=== PATIENT | female | born 1990 | race American Indian/Alaskan Native ===

== ENCOUNTER 2017-03-13 09:40 | Emergency (ER) | payer SELFPAY ==
[2017-03-13 10:25] LABS: Basophils % (Auto) 1.1 % (0.0-1.8); Eosinophils % (Auto) 1.8 % (0.0-4.3); Hematocrit 34.3 % (30.3-42.9); Hemoglobin 11.2 gm/dl (10.1-14.3); Mean Corpuscular HGB Conc 33 % (30-34); Mean Corpuscular Hemoglobin 27 pg (28-32); Mean Corpuscular Volume 82 fl (79-97); Platelet Count 214 K/mm3 (140-440); Red Blood Count 4.16 M/mm3 (3.65-5.03); White Blood Count 4.4 K/mm3 (4.5-11.0)
[2017-03-13 10:32] LABS: Anion Gap 16 mmol/L; BUN/Creatinine Ratio 7.14; Blood Urea Nitrogen 5 mg/dL (7-17); Calcium 8.5 mg/dL (8.4-10.2); Carbon Dioxide 25 mmol/L (22-30); Chloride 103.9 mmol/L (98-107); Glucose 85 mg/dL (65-100); Potassium 3.5 mmol/L (3.6-5.0); Sodium 141 mmol/L (137-145)
--- NOTE | 2017-03-13 10:48 | Emergency Department Report ---
Entered by JOSIE PARHAM, acting as scribe for ROSE VENTURA NP. Chief Complaint: Vaginal Bleeding Stated Complaint: 8WKS /VAG BLEEDING Time Seen by Provider: 03/13/17 10:30 - HPI History of Present Illness: 26 y/o female is 8 weeks c/o vaginal bleeding Visited clinic and diagnosed with UTI Notes recently receiving an ultrasound and speculum exam with normal results LMP 01/16/2017 seen at [facility] on 5-10 told bv,uti, and preg pat work presented but not enough detail. need records vag bleed. nad no abd pain - ROS Review of Systems: see above - Exam Vital Signs: Vital Signs 03/13/17 09:53 Temperature 97.9 F Pulse Rate 81 Respiratory 17 Rate Blood Pressure 126/83 O2 Sat by Pulse 100 Oximetry Physical Exam: see above MSE screening note: Focused history and physical exam performed. Due to findings the following was ordered: ED Medical Decision Making - Lab Data Result diagrams: 03/13/17 10:05 03/13/17 10:05 ED Disposition for MSE Condition: Stable This documentation as recorded by the scribe,JOSIE PARHAM,accurately reflects the service I personally performed and the decisions made by ,ROSE NOVAK NP.
[2017-03-13 11:28] LABS: Bilirubin,Urine NEG (Negative); Blood,Urine LG (Negative); Ketones,Urine NEG (Negative); Leukocyte Esterase,Urine TR (Negative); Mucus,Urine 3+ /HPF; Nitrite,Urine NEG (Negative)
[2017-03-13 11:30] LABS: RBC,Urine > 182.0 /HPF (0.0-6.0)
--- NOTE | 2017-03-13 14:46 | Ultrasound Report ---
ULTRASOUND OB LESS THAN 14 WEEKS - TRANSABDOMINAL AND TRANSVAGINAL INDICATION: , vaginal bleeding. Serum beta-hCG of 2,407 units. COMPARISON: 07/19/2013 FINDINGS: Transabdominal and transvaginal pelvic sonography performed in this patient with estimated menstrual age of 8 weeks and 0 days and EDC of 12/24/2016 per outside ultrasound. An anteverted uterus measuring approximately 9.8 x 6.2 x 6.7 cm demonstrates endometrial thickness of approximately 2.2 cm as on endovaginal image 10. Approximately 1 x 0.6 cm endometrial heterogeneity superiorly, endovaginal image 3 seemed mobile on real-time imaging, appearing mid to lower uterine and somewhat elongated hypoechoic focus along the endometrium as on endovaginal images 4-6 that may represent a gestational sac with mean diameter of 1.37 cm, corresponding to 6 weeks and 2 days. A pole with mean crown-rump length of 0.93 cm corresponds to 7 weeks and zero days. No heart tones though obtained. A small subchorionic hemorrhage may be present. Minimal pelvic free fluid. Right ovary is 4.1 x 1.8 x 3.5 cm, only seen transabdominally with an approximately 2.4 cm possible cyst/corpus luteum. Left ovary measures 2.9 x 2.5 x 3.2 cm endovaginally with approximately 1.9 cm follicular cyst. CONCLUSION: 1. Sonographic appearance most in keeping with an intrauterine first trimester demise, as described. Note though made of similar findings in June 2015 as well. 2. Other findings, including both ovaries visualized, as above. Please also correlate clinically, with serial serum beta-hCG values and/or followup sonogram, as warranted. Thank you for the opportunity to participate in this patient's care.
--- NOTE | 2017-03-13 18:08 | Emergency Department Report ---
HPI - General Chief Complaint: Vaginal Bleeding Time Seen by Provider: 03/13/17 17:56 - HPI HPI: This is a 26-year-old Afro-[place] female who presents to the emergency department from home with complaint of a few days of some mild vaginal bleeding and some abdominal cramping while . The patient believes herself to be about 8 weeks secondary to a last menstrual cycle of January 16 and positive home test. Her [employer] is Dr. Sylvie Stuart but she has not seen Dr. Stuart yet regarding this . With this she is . She denies any fever, nausea, vomiting, dysuria, vaginal discharge, back pain. No recent travel or sick contacts at home. She is not currently on vitamins. She is not taken anything for symptoms prior to presentation. ED Past Medical Hx - Past Medical History Hx Hypertension: No Hx Congestive Heart Failure: No Hx Diabetes: No Hx Deep Vein Thrombosis: No Hx Renal Disease: No Hx Sickle Cell Disease: No Hx Seizures: No Hx Asthma: Yes (last attack 1999) Hx COPD: No Hx HIV: No - Surgical History Past Surgical History?: No - Social History Smoking Status: Never Smoker Substance Use Type: None - Medications Home Medications: Home Medications Medication Instructions Recorded Confirmed Last Taken Type Ferrous Sulfate [Feosol] 325 mg PO BID 11/26/15 11/26/15 Unknown History Vit-Fe Fumar-FA [ 1 tab PO QDAY 11/26/15 11/26/15 Unknown History Vitamin] Vit No.130/Iron/FA 1 each PO QDAY #30 tablet 03/13/17 Unknown Rx [ Tablet] ED Review of Systems ROS: Stated complaint: 8WKS /VAG BLEEDING Other details as noted in HPI Comment: All other systems reviewed and negative Constitutional: denies: chills, fever Eyes: denies: eye pain, eye discharge, vision change ENT: denies: ear pain, throat pain Respiratory: denies: cough, shortness of breath, wheezing Cardiovascular: denies: chest pain, palpitations Gastrointestinal: abdominal pain. denies: nausea, vomiting Genitourinary: other (vaginal bleeding). denies: urgency, dysuria, discharge Musculoskeletal: denies: back pain, joint swelling, arthralgia Skin: denies: rash, lesions Neurological: denies: headache, weakness, paresthesias Physical Exam - Physical Exam Vital Signs: Vital Signs 03/13/17 09:53 Temperature 97.9 F Pulse Rate 81 Respiratory 17 Rate Blood Pressure 126/83 O2 Sat by Pulse 100 Oximetry Physical Exam: GENERAL: The patient is well-developed well-nourished. HEENT: Normocephalic. Atraumatic. Extraocular motions are intact. Patient has moist mucous membranes. Pupils equal reactive to light bilaterally. NECK: Supple. Trachea is midline. CHEST/LUNGS: Clear to auscultation. There is no respiratory distress noted. HEART/CARDIOVASCULAR: Regular. There is no tachycardia. There is no gallop rub or murmur. ABDOMEN: Abdomen is soft, nontender. Patient has normal bowel sounds. There is no abdominal distention. SKIN: Skin is warm and dry. NEURO: The patient is awake, alert, and oriented. The patient is cooperative. The patient has no focal neurologic deficits. The patient has normal speech and gait. MUSCULOSKELETAL: There is no tenderness or deformity. There is no limitation range of motion. There is no evidence of acute injury. ED Course Vital Signs 03/13/17 09:53 Temperature 97.9 F Pulse Rate 81 Respiratory 17 Rate Blood Pressure 126/83 O2 Sat by Pulse 100 Oximetry ED Medical Decision Making - Lab Data Result diagrams: 03/13/17 10:05 03/13/17 10:05 - Radiology Data Radiology results: report reviewed ultrasound shows sonographic appearance most in keeping with an intrauterine first trimester demise. There is a gestational sac corresponding to about 6 weeks and 2 days. There is a pole corresponding to about 7 weeks. No heart tones obtained. - Medical Decision Making 26-year-old female presents with some vaginal bleeding and abdominal cramping while about 8 weeks . Hormone levels about 2500. There is no previous data to compare during this . An ultrasound was done that shows concern for intrauterine demise as there is a yolk sac, gestational sac, pole but no heart tones. Patient will be started on vitamins just in case this is still an early viable and has been encouraged to follow-up with her [employer]. If she is unable to do so in the next few days, she will return to the ER for a repeat hormone level and possibly repeat ultrasound. If the hormone level is rising and a repeat ultrasound shows heart tones then this was an early viable . If the hormone level is decreasing, staying the same or if the ultrasound shows regression of the , then this is most likely demise and impending miscarriage. - Differential Diagnosis , threatened miscarriage, spontaneous miscarriage, fibroids Critical Care Time: No Critical care attestation.: If time is entered above; I have spent that time in minutes in the direct care of this critically ill patient, excluding procedure time. ED Disposition Clinical Impression: Threatened miscarriage, demise Disposition: DISCHARGED TO HOME OR SELFCARE Is pt being admited?: No Condition: Stable Instructions: Intrauterine Demise (ED), Threatened Miscarriage (ED) Additional Instructions: Please follow-up with your [employer], Dr. Stuart, in the next few days without fail. While the ultrasound appears consistent with demise, there is still a very small chance that this could be a viable intrauterine early . He will need a repeat hormone level and possibly a repeat ultrasound. If the hormone level is increasing and there is some development on the ultrasound, then this may be early . If the hormone level is decreasing or the ultrasound appears to be regressing, then this was a demise and you may need further intervention by her [employer]. Return to the emergency department sooner with any worsening of your symptoms, intractable fever, intractable abdominal discomfort, or any acute distress. Prescriptions: Vit No.130/Iron/FA [ Tablet] 1 each PO QDAY #30 tablet Referrals: RAF STUART MD [Primary Care Provider] - [facility] Time of Disposition: 18:10
[2017-03-13 18:39] VITALS: BP 129/74
== END 2017-03-13 18:38 | disposition home or self-care (01) ==
LOC: ED 09:40
DX: O20.0 Threatened abortion (principal); O36.4XX0 Maternal care for intrauterine death, not applicable or unspecified; J45.909 Unspecified asthma, uncomplicated
CPT/HCPCS: 36415; 76801; 76817; 80048; 81001; 84702; 85025; 86900; 86901

== ENCOUNTER 2017-06-23 12:54 | Emergency (ER) | payer SELFPAY ==
[2017-06-23 13:51] VITALS: BP 142/89
[2017-06-23 14:40] LABS: Basophils % (Auto) 0.5 % (0.0-1.8); Eosinophils % (Auto) 1.1 % (0.0-4.3); Hematocrit 31.4 % (30.3-42.9); Mean Corpuscular HGB Conc 32 % (30-34); Mean Corpuscular Hemoglobin 26 pg (28-32); Mean Corpuscular Volume 83 fl (79-97); Platelet Count 246 K/mm3 (140-440); Red Blood Count 3.79 M/mm3 (3.65-5.03); Red Cell Distribution Width 15.3 % (13.2-15.2); White Blood Count 6.2 K/mm3 (4.5-11.0)
[2017-06-23 15:28] LABS: Bacteria,Urine 4+ /HPF (Negative); Bilirubin,Urine NEG (Negative); Blood,Urine LG (Negative); Ketones,Urine NEG (Negative); Leukocyte Esterase,Urine SM (Negative); Mucus,Urine 2+ /HPF; Nitrite,Urine NEG (Negative)
[2017-06-23 15:31] LABS: RBC,Urine > 182.0 /HPF (0.0-6.0)
--- NOTE | 2017-06-23 15:59 | Ultrasound Report ---
Pelvic and transvaginal sonography: History: Bleeding/. Findings: Uterus measures 11 x 5 x 6.6 cm. Endometrial thickness 19 mm. Echogenic area is noted within the endometrium suggestive of retained blood clots. No intrauterine gestation is noted. Open cervix 1.2 cm in AP diameter. Right ovary 4 x 2.5 x 4 cm. No mass. Left ovary 4.9 x 3.4 x 5 cm. Cyst in the left ovary measures 2.2 cm. Impression: No intrauterine gestation. Findings as detailed above.
== END 2017-06-23 15:25 | disposition left against medical advice (07) ==
LOC: ED 12:54
DX: Z53.21 Procedure and treatment not carried out due to patient leaving prior to being seen by health care provider (principal)
CPT/HCPCS: 36415; 76801; 76817; 81001; 84702; 84703; 85025; 86850; 86900; 86901

== ENCOUNTER 2017-12-14 16:03 | Emergency (ER) | payer MEDICAID ==
[2017-12-14 16:36] VITALS: BP 122/81
[2017-12-14 17:05] LABS: Basophils % (Auto) 0.6 % (0.0-1.8); Eosinophils % (Auto) 0.8 % (0.0-4.3); Hematocrit 31.6 % (30.3-42.9); Hemoglobin 10.5 gm/dl (10.1-14.3); Lymphocytes # (Auto) 1.5 K/mm3 (1.2-5.4); Lymphocytes % (Auto) 31.1 % (13.4-35.0); Mean Corpuscular HGB Conc 33 % (30-34); Mean Corpuscular Hemoglobin 26 pg (28-32); Mean Corpuscular Volume 79 fl (79-97); Monocytes # (Auto) 0.3 K/mm3 (0.0-0.8); Monocytes % (Auto) 6.2 % (0.0-7.3); Platelet Count 241 K/mm3 (140-440); Red Cell Distribution Width 19.5 % (13.2-15.2)
[2017-12-14 17:22] LABS: Alanine Aminotransferase 6 units/L (7-56); Albumin 3.6 g/dL (3.9-5); BUN/Creatinine Ratio 14; Blood Urea Nitrogen 7 mg/dL (7-17); Calcium 8.7 mg/dL (8.4-10.2); Hemolysis Index 3
--- NOTE | 2017-12-14 18:44 | Emergency Department Report ---
ED Female HPI - General Chief complaint: Abdominal Pain Stated complaint: ABDOMINAL CRAMPING Time Seen by Provider: 12/14/17 18:39 Source: patient Mode of arrival: Ambulatory Limitations: No Limitations - History of Present Illness Initial comments: Patient is a 27-year-old female who is less than 12 weeks presumably who is coming with lower abdominal cramping. Patient states this started earlier today however before her exam she says she drank a Coca[employer] and she has belched several times and passed flatus and now her pain has gone away. Patient denies any vaginal bleeding discharge dysuria hematuria or continued pain MD Complaint: pelvic pain Radiation: suprapubic Quality: cramping Consistency: now resolved - Related Data Home Medications Medication Instructions Recorded Confirmed Last Taken Ferrous Sulfate [Feosol] 325 mg PO BID 11/26/15 11/26/15 Unknown Vit-Fe Fumar-FA [ 1 tab PO QDAY 11/26/15 11/26/15 Unknown Vitamin] Previous Rx's Medication Instructions Recorded Last Taken Type Vit No.130/Iron/Folic 1 each PO QDAY #30 tablet 03/13/17 Unknown Rx [ Tablet] Allergies Allergy/AdvReac Type Severity Reaction Status Date / Time Penicillins Allergy Unknown Verified 07/19/13 18:18 ED Review of Systems ROS: Stated complaint: ABDOMINAL CRAMPING Other details as noted in HPI Comment: All other systems reviewed and negative ED Past Medical Hx - Past Medical History Hx Hypertension: No Hx Congestive Heart Failure: No Hx Diabetes: No Hx Deep Vein Thrombosis: No Hx Renal Disease: No Hx Sickle Cell Disease: No Hx Seizures: No Hx Asthma: No (last attack 1999) Hx COPD: No Hx HIV: No - Surgical History Past Surgical History?: No - Social History Smoking Status: Never Smoker Substance Use Type: None - Medications Home Medications: Home Medications Medication Instructions Recorded Confirmed Last Taken Type Ferrous Sulfate [Feosol] 325 mg PO BID 11/26/15 11/26/15 Unknown History Vit-Fe Fumar-FA [ 1 tab PO QDAY 11/26/15 11/26/15 Unknown History Vitamin] Vit No.130/Iron/Folic 1 each PO QDAY #30 tablet 03/13/17 Unknown Rx [ Tablet] ED Physical Exam - General Limitations: No Limitations General appearance: alert, in no apparent distress - Head Head exam: Present: atraumatic, normocephalic - Eye Eye exam: Present: normal appearance - ENT ENT exam: Present: mucous membranes moist - Neck Neck exam: Present: normal inspection - Respiratory Respiratory exam: Present: normal lung sounds bilaterally. Absent: respiratory distress - Cardiovascular Cardiovascular Exam: Present: regular rate, normal rhythm. Absent: systolic murmur, diastolic murmur, rubs, gallop - GI/Abdominal GI/Abdominal exam: Present: soft, normal bowel sounds - Extremities Exam Extremities exam: Present: normal inspection - Back Exam Back exam: Present: normal inspection - Neurological Exam Neurological exam: Present: alert, oriented X3 - Psychiatric Psychiatric exam: Present: normal affect, normal mood - Skin Skin exam: Present: warm, dry, intact, normal color. Absent: rash ED Course Vital Signs 12/14/17 16:32 Temperature 97.8 F Pulse Rate 97 H Respiratory 16 Rate Blood Pressure 122/81 O2 Sat by Pulse 100 Oximetry ED Medical Decision Making - Lab Data Result diagrams: 12/14/17 16:49 12/14/17 16:49 - Medical Decision Making Patient has an appointment to see her [employer] next week patient has no abdominal pain and do not believe she needs an emergent ultrasound this time patient will be discharged home Critical care attestation.: If time is entered above; I have spent that time in minutes in the direct care of this critically ill patient, excluding procedure time. ED Disposition Clinical Impression: Gas pain Disposition: DC-01 TO HOME OR SELFCARE Is pt being admited?: No Does the pt Need Aspirin: No Condition: Stable Instructions: Abdominal Pain (ED) Referrals: PRIMARY CARE, [Primary Care Provider] - 3-5 Days
[2017-12-14 21:50] LABS: HCG Qualitative,Urine Positive (Negative)
== END 2017-12-14 18:57 | disposition home or self-care (01) ==
LOC: ED 16:03
DX: O26.891 Other specified pregnancy related conditions, first trimester (principal); R14.1 Gas pain; Z3A.12 12 weeks gestation of pregnancy
CPT/HCPCS: 36415; 80053; 81025; 84702; 84703; 85025

== ENCOUNTER 2018-02-19 10:11 | Emergency (ER) | payer MEDICAID ==
[2018-02-19 11:36] LABS: Basophils % (Auto) 0.3 % (0.0-1.8); Eosinophils # (Auto) 0.1 K/mm3 (0.0-0.4); Eosinophils % (Auto) 1.3 % (0.0-4.3); Hematocrit 29.3 % (30.3-42.9); Hemoglobin 9.5 gm/dl (10.1-14.3); Lymphocytes # (Auto) 1.4 K/mm3 (1.2-5.4); Mean Corpuscular HGB Conc 32 % (30-34); Mean Corpuscular Hemoglobin 27 pg (28-32); Mean Corpuscular Volume 83 fl (79-97); Monocytes # (Auto) 0.3 K/mm3 (0.0-0.8); Monocytes % (Auto) 5.7 % (0.0-7.3); Platelet Count 201 K/mm3 (140-440); Red Blood Count 3.55 M/mm3 (3.65-5.03); Red Cell Distribution Width 16.4 % (13.2-15.2)
[2018-02-19 11:50] LABS: Alanine Aminotransferase 7 units/L (7-56); Albumin 3.6 g/dL (3.9-5); BUN/Creatinine Ratio 10; Blood Urea Nitrogen 5 mg/dL (7-17); Calcium 8.9 mg/dL (8.4-10.2); Hemolysis Index 4; Lipase 9 units/L (13-60)
[2018-02-19 12:23] LABS: Bacteria,Urine 2+ /HPF (Negative); Bilirubin,Urine NEG (Negative); Blood,Urine NEG (Negative); Color,Urine Yellow (Yellow); Mucus,Urine 3+ /HPF; Urobilinogen,Urine < 2.0 mg/dL (<2.0)
[2018-02-19] MEDS ORDERED: NACL 0.9% 1000 ML 1,000 ML IV ONE (14:06)
[2018-02-19] MEDS ORDERED: ZOFRAN IV ONE (14:06)
--- NOTE | 2018-02-19 14:06 | Emergency Department Report ---
Blank Doc - Documentation Documentation: Patient is 27 years old female, 19 weeks , presents complaining of right upper quadrants pain for the last 2-3 days associated with nausea but no vomiting. Patient denied any vaginal bleeding or vaginal discharge. She denied any lower abdominal pain. No fever.
--- NOTE | 2018-02-19 14:33 | Emergency Department Report ---
HPI - General Chief Complaint: Abdominal Pain Time Seen by Provider: 02/19/18 13:58 - HPI HPI: She is a 27 year-old 004 who presents to ED at 19 weeks gestation complaining of right flank pain 3 days. She states pain does not radiate anywhere else. She had migraines, nausea the pain. She describes it as sharp in nature. Patient denies feeling this is chills/vomiting/vaginal discharge/ Vaginal Bleeding. She States it receives care and has an appointment on March 07. She ED Past Medical Hx - Past Medical History Hx Hypertension: No Hx Congestive Heart Failure: No Hx Diabetes: No Hx Deep Vein Thrombosis: No Hx Renal Disease: No Hx Sickle Cell Disease: No Hx Seizures: No Hx Asthma: No (last attack 1999) Hx COPD: No Hx HIV: No - Social History Smoking Status: Never Smoker Substance Use Type: None - Medications Home Medications: Home Medications Medication Instructions Recorded Confirmed Last Taken Type Vit-Fe Fumar-FA [ 1 tab PO QDAY 11/26/15 11/26/15 Unknown History Vitamin] Vit No.130/Iron/Folic 1 each PO QDAY #30 tablet 03/13/17 Unknown Rx [ Tablet] Acetaminophen [Tylenol Extra 500 mg PO TID #30 tablet 02/19/18 Unknown Rx Strength] Ferrous Sulfate [Feosol 325 MG tab] 325 mg PO BID #40 tablet 02/19/18 Unknown Rx Nitrofurantoin Monohyd/M-Cryst 100 mg PO BID #14 capsule 02/19/18 Unknown Rx [Macrobid 100 mg Capsule] Ondansetron [Zofran Odt] 4 mg PO Q8H #30 tab.rapdis 02/19/18 Unknown Rx ED Review of Systems ROS: Stated complaint: RIGHT FLANK PAIN Other details as noted in HPI Constitutional: denies: chills, fever Eyes: denies: eye pain, eye discharge, vision change ENT: denies: ear pain, throat pain Respiratory: denies: cough, shortness of breath, wheezing Cardiovascular: denies: chest pain, palpitations Endocrine: no symptoms reported Gastrointestinal: denies: abdominal pain, nausea, diarrhea Genitourinary: denies: urgency, dysuria, discharge Musculoskeletal: denies: back pain, joint swelling, arthralgia Skin: denies: rash, lesions Neurological: denies: headache, weakness, paresthesias Psychiatric: denies: anxiety, depression Hematological/Lymphatic: denies: easy bleeding, easy bruising Physical Exam - Physical Exam Vital Signs: Vital Signs 02/19/18 11:20 Temperature 98.4 F Pulse Rate 82 Respiratory 18 Rate Blood Pressure 113/69 O2 Sat by Pulse 100 Oximetry Physical Exam: GENERAL: Alert and oriented x3, no apparent distress, Normal Gait, atraumatic. HEAD: Head is normocephalic and a-traumatic. EYES: Extra ocular muscles are intact. Pupils are equal, round, and reactive to light and accommodation. LUNGS: Symetrical with respiration, No wheezing, no rales or crackles, CTAB. HEART: S1, S2 present, regular rate and rhythm without murmur, no rubs, no gallops. Non tender to palpation ABDOMEN: No organomegaly was noted,Positive bowel sounds, soft, and non- distended. . Nontender to palpation on all Quadrants, NO CVA tenderness. NEUROLOGIC: The patient is cooperative with no focal neurologic deficits. SKIN: Warm and dry, No lesions, No ulceration or induration present. ED Course Vital Signs 02/19/18 11:20 Temperature 98.4 F Pulse Rate 82 Respiratory 18 Rate Blood Pressure 113/69 O2 Sat by Pulse 100 Oximetry ED Medical Decision Making - Lab Data Result diagrams: 02/19/18 11:25 02/19/18 11:25 - Radiology Data Radiology results: report reviewed, image reviewed FINAL REPORT EXAM: US ABDOMEN LIMITED HISTORY: right upper quadrant pain, TECHNIQUE: Directed sonography of the right upper quadrant. PRIORS: None. FINDINGS: Gallbladder contains multiple, echogenic and shadowing calculi. Wall thickness within normal limits. Intra-and extrahepatic bile ducts are of normal caliber. Liver has normal homogeneous echogenicity without focal abnormalities. Right kidney measures 9.7 cm in longest dimension and is grossly unremarkable. Visualized pancreatic parenchyma grossly unremarkable. IMPRESSION: 1. Cholelithiasis. Transcribed By: [facility] Dictated By: JANINA MCCOLLUM MD Electronically Authenticated By: JANINA MCCOLLUM MD Signed Date/Time: 02/19/18 5085 - Medical Decision Making This is a 27-year-old female who presents with gall bladder stones in ED course: CBC, BMP, urinalysis, test, ultrasound of the abdomen Patient received 1 L of normal saline, Zofran for nausea. Urinalysis positive for bacteria, CBC shows anemia. CMP shows mildly dehydrated. I discussed findings with patient and discussed with her she would need to increase her water intake. Also discussed the patient before antibiotics for UTI treatment. Discussed iron tablets twice a day. I discussed with patient to follow-up with her private [employer]ER. Discussed f./u with GI for management gall bladder stone I discussed the patient have any worsening symptoms to Return to ED. Patient had no vomiting episodes in ed stay Vital signs are normal she is in no acute distress. Critical care attestation.: If time is entered above; I have spent that time in minutes in the direct care of this critically ill patient, excluding procedure time. ED Disposition Clinical Impression: Cholelithiasis UTI (urinary tract infection) Qualifiers: Urinary tract infection type: acute cystitis Hematuria presence: without hematuria Qualified Code(s): N30.00 - Acute cystitis without hematuria Anemia in Qualifiers: Trimester: second trimester Qualified Code(s): O99.012 - Anemia complicating , second trimester Disposition: TO HOME OR SELFCARE Is pt being admited?: No Does the pt Need Aspirin: No Condition: Stable Instructions: Biliary Colic (ED), Urinary Tract Infection in Women (ED), Abdominal Pain (ED), Flank Pain (ED) Additional Instructions: Make sure to follow up with the primary care physician as discussed. Take all your medications as you've been prescribed. If you have any worsening symptoms or develop new symptoms please return to ED immediately. Prescriptions: Acetaminophen [Tylenol Extra Strength] 500 mg PO TID #30 tablet Ferrous Sulfate [Feosol 325 MG tab] 325 mg PO BID #40 tablet Nitrofurantoin Monohyd/M-Cryst [Macrobid 100 mg Capsule] 100 mg PO BID #14 capsule Ondansetron [Zofran Odt] 4 mg PO Q8H #30 tab.rapdis Referrals: RAF MCKAY MD [Primary Care Provider] - 3-5 Days [facility] [Provider Group] - 3-5 Days Forms: Work/School Release Form(ED) Time of Disposition: 17:19
--- NOTE | 2018-02-19 16:59 | Ultrasound Report ---
FINAL REPORT EXAM: US ABDOMEN LIMITED HISTORY: right upper quadrant pain, TECHNIQUE: Directed sonography of the right upper quadrant. PRIORS: None. FINDINGS: Gallbladder contains multiple, echogenic and shadowing calculi. Wall thickness within normal limits. Intra-and extrahepatic bile ducts are of normal caliber. Liver has normal homogeneous echogenicity without focal abnormalities. Right kidney measures 9.7 cm in longest dimension and is grossly unremarkable. Visualized pancreatic parenchyma grossly unremarkable. IMPRESSION: 1. Cholelithiasis.
[2018-02-19 17:39] VITALS: BP 110/64
== END 2018-02-19 17:38 | disposition home or self-care (01) ==
LOC: ED 10:11
DX: O99.012 Anemia complicating pregnancy, second trimester (principal); O23.42 Unspecified infection of urinary tract in pregnancy, second trimester; O26.892 Other specified pregnancy related conditions, second trimester; K80.20 Calculus of gallbladder without cholecystitis without obstruction; Z3A.19 19 weeks gestation of pregnancy
CPT/HCPCS: 36415; 76705; 80053; 81001; 83690; 85025; 96361; 96374; 99284; J2405; J7030